=== PATIENT | female | born 1980 | race Two or more races ===

== ENCOUNTER 2018-01-19 08:33 | Emergency (ER) | payer SELFPAY ==
[~2018-01-19] VITALS: Ht 170.2 cm; Wt 122.7 kg
[2018-01-19] MEDS ORDERED: ONDANSETRON 2MG/ML, 2ML IVPush ONE (09:00)
[2018-01-19] MEDS ORDERED: SODIUM CHLORIDE 0.9% 1,000ML IVBOLUS ONE (09:00)
[2018-01-19] MEDS ORDERED: SODIUM CHLORIDE FLUSH 10ML SYR IVF ONE (09:00)
[2018-01-19 09:12] LABS: BASOPHILS # (AUTO) 0.03 x10^3/uL (0-0.1); BASOPHILS % (AUTO) 0 % (0-1); EOSINOPHILS # (AUTO) 0.21 x10^3/uL (0-0.4); EOSINOPHILS % (AUTO) 2 % (1-7); LYMPHOCYTES # (AUTO) 2.66 x10^3/uL (1-3.4); LYMPHOCYTES % (AUTO) 28 % (22-44); MD NO; MEAN CORPUSCULAR HEMOGLOBIN 28.8 pg (27.0-34.8); MEAN CORPUSCULAR HGB CONC 34.2 g/dL (32.4-35.8); MEAN CORPUSCULAR VOLUME 84.2 fL (80-100); MEAN PLATELET VOLUME 8.2 fL (7.4-10.4); MONOCYTES # (AUTO) 0.52 x10^3/uL (0.2-0.8); MONOCYTES % (AUTO) 6 % (2-9); NEUTROPHILS # (AUTO) 6.09 x10^3/uL (1.8-6.8); NEUTROPHILS % (AUTO) 64 % (42-75); PLATELET COUNT 307 x10^3/uL (130-400); RED BLOOD COUNT 5.13 x10^6/uL (3.82-5.3)
[2018-01-19 09:23] LABS: ALANINE AMINOTRANSFERASE 23 U/L (12-78); ALBUMIN 3.4 g/dL (3.4-5.0); ANION GAP 8 mmol/L (5-15); CALCIUM 8.1 mg/dL (8.5-10.1); CHLORIDE 107 mmol/L (98-107)
[2018-01-19 09:28] LABS: ALKALINE PHOSPHATASE 72 U/L (45-117); BILIRUBIN,TOTAL 0.4 mg/dL (0.2-1.0); CREATININE 0.96 mg/dL (0.55-1.02)
[2018-01-19] MEDS ORDERED: MORPHINE SULFATE 4 MG/ML, 1ML ONE ×2 (09:35→10:20)
[2018-01-19] MEDS ORDERED: ONDANSETRON 2MG/ML, 2ML ONE (09:35)
[2018-01-19 09:46] VITALS: BP 141/76
[2018-01-19] MEDS: MORPHINE SULFATE 4 MG/ML, 1ML IVPush PRN ×2 (09:48→10:26)
[2018-01-19 10:25] LABS: CULTURE INDICATED? YES; MICROSCOPIC INDICATED
== END 2018-01-19 11:10 | disposition home or self-care (01) ==
LOC: ED 10:18
DX: S83.411A Sprain of medial collateral ligament of right knee, initial encounter (principal); R10.11 Right upper quadrant pain; X58.XXXA Exposure to other specified factors, initial encounter; Y93.89 Activity, other specified; Y92.89 Other specified places as the place of occurrence of the external cause; Y99.8 Other external cause status
CPT/HCPCS: 29530; 36415; 73564; 76700; 80053; 81001; 83690; 84703; 85025; 87086; 96361; 96374; 96375; 96376; 99285; J2405; J7030

== ENCOUNTER 2019-06-20 23:16 | Emergency (ER) | payer SELFPAY ==
[~2019-06-20] VITALS: Ht 170.2 cm; Wt 128.2 kg
[2019-06-20 23:20] VITALS: BP 138/83
[2019-06-20] MEDS ORDERED: OXYcodone/APAP 5/325MG TABLET PO ONE (23:30)
[2019-06-20] MEDS ORDERED: IBUPROFEN 600 MG TABLET PO ONE (23:30)
[2019-06-20] MEDS ORDERED: IBUPROFEN 600 MG TABLET ONE (23:35)
[2019-06-20] MEDS ORDERED: OXYcodone/APAP 5/325MG TABLET ONE (23:35)
[2019-06-21] MEDS ORDERED: LIDOCAINE-MPF 1%, 5ML ONE (00:41)
[2019-06-21] MEDS ORDERED: LIDOCAINE 2%, 10ML INFIL ONE (01:00)
--- NOTE | 2019-06-21 01:58 | NUR ---
DRESSING APPLIED AND ICE PACK GIVEN.
--- NOTE | 2019-06-21 03:13 | NUR ---
KNEE IMOBILIZER APPLIED AND CRUTCH WALKING INSTRUCTIONS GIVEN. PT VERB UNDERSTANDING. Patient/Caregiver given discharge instructions and they have confirmed that they understand the instructions. Patient ambulatory with steady gait.
== END 2019-06-21 03:15 ==
LOC: ED 06-21 03:00
DX: S80.02XA Contusion of left knee, initial encounter (principal); I10 Essential (primary) hypertension; M25.062 Hemarthrosis, left knee; M25.462 Effusion, left knee; W18.30XA Fall on same level, unspecified, initial encounter; Y93.89 Activity, other specified; Y92.009 Unspecified place in unspecified non-institutional (private) residence as the place of occurrence of the external cause; Y99.8 Other external cause status
CPT/HCPCS: 29505; 73564; 84560; 85810; 87070; 87205; 89050; 89060; 99284; J2001

== ENCOUNTER 2019-12-17 20:34 | Emergency (ER) | payer OTHER ==
[~2019-12-17] VITALS: Ht 170.2 cm; Wt 129.2 kg
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
--- NOTE | 2019-12-17 21:28 | NUR ---
PT TO RADIOLOGY.
[2019-12-17] MEDS ORDERED: KETOROLAC 30 MG/1 ML IM ONE (21:30)
[2019-12-17] MEDS ORDERED: DIAZEPAM 5 MG TABLET PO ONE (21:30)
[2019-12-17] MEDS ORDERED: DIAZEPAM 5 MG TABLET ONE (21:30)
[2019-12-17] MEDS ORDERED: KETOROLAC 30 MG/1 ML ONE (21:30)
--- NOTE | 2019-12-17 21:33 | NUR ---
PT MEDICATED PER ORDERS.
[2019-12-17 21:39] VITALS: BP 144/72
--- NOTE | 2019-12-17 21:43 | NUR ---
ALL RESULTS BACK AT THIS TIME, CHART UP FOR RECHECK.
--- NOTE | 2019-12-17 21:59 | NUR ---
REPORT GIVEN TO REINALDO GREENWOOD. CARE TRANSFERRED.
== END 2019-12-17 22:55 | disposition home or self-care (01) ==
LOC: ED 22:30
DX: S20.211A Contusion of right front wall of thorax, initial encounter (principal); I10 Essential (primary) hypertension; V57.6XXA Passenger in pick-up truck or van injured in collision with fixed or stationary object in traffic accident, initial encounter; Y93.89 Activity, other specified; Y92.410 Unspecified street and highway as the place of occurrence of the external cause; Y99.8 Other external cause status
CPT/HCPCS: 71046; 93005; 96372; 99283; J1885

== ENCOUNTER 2020-08-24 15:13 | Emergency (ER) | payer SELFPAY ==
[~2020-08-24] VITALS: Ht 167.6 cm; Wt 129.1 kg
[2020-08-24 15:56] LABS: ALANINE AMINOTRANSFERASE 50 U/L (12-78); ALBUMIN 3.8 g/dL (3.4-5.0); ANION GAP 6 mmol/L (5-15); CALCIUM 9.1 mg/dL (8.5-10.1); CHLORIDE 103 mmol/L (98-107); CREATININE 1.01 mg/dL (0.55-1.02)
[2020-08-24 15:57] LABS: BASOPHILS % (AUTO) 1 % (0-1); EOSINOPHILS % (AUTO) 3 % (1-7); LYMPHOCYTES % (AUTO) 38 % (22-44); MEAN CORPUSCULAR HEMOGLOBIN 28.2 pg (27.0-34.8); MEAN CORPUSCULAR HGB CONC 32.8 g/dL (32.4-35.8); MEAN PLATELET VOLUME 8.2 fL (7.4-10.4); MONOCYTES % (AUTO) 5 % (2-9); NEUTROPHILS % (AUTO) 54 % (42-75); PLATELET COUNT 382 x10^3/uL (130-400); RED BLOOD COUNT 5.27 x10^6/uL (3.82-5.3); RED CELL DISTRIBUTION WIDTH 13.5 % (9.6-15.2)
[2020-08-24 15:57] LABS: MICROSCOPIC NOT IND
[2020-08-24 16:00] LABS: ALKALINE PHOSPHATASE 96 U/L (45-117); BILIRUBIN,TOTAL 0.3 mg/dL (0.2-1.0); TOTAL PROTEIN 8.7 g/dL (6.4-8.2)
[2020-08-24 16:13] LABS: MD NO
--- NOTE | 2020-08-24 17:55 | NUR ---
VESSEL CAPTAIN: PT AMBULATORY TO ROOM FROM LOBBY
[2020-08-24] MEDS ORDERED: METHOCARBAMOL 750 MG TABLET PO ONE (18:30)
[2020-08-24] MEDS ORDERED: KETOROLAC 30 MG/1 ML IM ONE (18:30)
[2020-08-24] MEDS ORDERED: METHOCARBAMOL 750 MG TABLET ONE (18:54)
[2020-08-24] MEDS ORDERED: KETOROLAC 60 MG/2 ML ONE (18:54)
--- NOTE | 2020-08-24 19:09 | NUR ---
REPORT FROM TEJ NAJERA
[2020-08-24 19:43] VITALS: BP 126/76
--- NOTE | 2020-08-24 19:56 | NUR ---
pt DCed at this time, ROLAND MANCUSO, ambulating in room without assistance. Education provided on new prescriptions and care at home. Pt and friend verbalized understanding and have no further questions at this time
== END 2020-08-24 20:00 | disposition home or self-care (01) ==
LOC: ED 19:54
DX: M54.5 Low back pain (principal); I10 Essential (primary) hypertension
CPT/HCPCS: 36415; 74176; 80053; 81003; 84703; 85025; 96372; 99284; J1885